=== PATIENT | female | born 1995 | race Caucasian/White ===

== ENCOUNTER 2018-07-01 09:43 | Day surgery (SDC) | payer OTHER ==
[2018-06-29 10:23] LABS: APPEARANCE,URINE CLEAR; BILIRUBIN,URINE NEGATIVE (NEGATIVE); COLOR,URINE COLORLESS; GLUCOSE, URINE NEGATIVE (NEGATIVE); KETONES,URINE NEGATIVE (NEGATIVE); LEUKOCYTE ESTERASE,URINE NEGATIVE (NEGATIVE); NITRITE,URINE NEGATIVE (NEGATIVE); PROTEIN,URINE NEGATIVE (NEGATIVE); URINE SPECIFIC GRAVITY 1.001; UROBILINOGEN,URINE NEGATIVE mg/dL (<2.0)
[2018-06-29 11:51] LABS: HEMATOCRIT 42.9 % (36.0-47.0); MEAN CORPUSCULAR HEMOGLOBIN 34.8 pg (27.0-33.4); MEAN CORPUSCULAR HGB CONC 34.8 g/dL (32.0-36.0); MEAN CORPUSCULAR VOLUME 100 fl (80-97); PLATELET COUNT 262 10^3/uL (150-450); RED CELL DISTRIBUTION WIDTH 12.7 % (11.5-14.0); WHITE BLOOD COUNT 6.8 10^3/uL (4.0-10.5)
[2018-06-29 12:07] LABS: ALANINE AMINOTRANSFERASE 62 U/L (9-52); ALKALINE PHOSPHATASE 41 U/L (38-126); ANION GAP 12 (5-19); ASPARTATE AMINO TRANSFERASE 23 U/L (14-36); BILIRUBIN,DIRECT 0.1 mg/dL (0.0-0.4); BILIRUBIN,TOTAL 0.3 mg/dL (0.2-1.3); BLOOD UREA NITROGEN 13 mg/dL (7-20); CARBON DIOXIDE 26 mmol/L (22-30); CHLORIDE 104 mmol/L (98-107); GLUCOSE 94 mg/dL (75-110); POTASSIUM 5.2 mmol/L (3.6-5.0); SODIUM 142.4 mmol/L (137-145); TOTAL PROTEIN 7.9 g/dL (6.3-8.2)
[~2018-07-01 09:43] MED LIST: BUPIVACAINE HCL 0.25 % INJ/PF (2.5 MG/1 ML) 30 ML VIAL ONE; CEFAZOLIN 1 GM/D5W RTU 1 GM/50 ML RTUPB IV PRN; LACTATED RINGERS 1000 ML IV PRN; LIDOCAINE 0.5% INJ-PF (5 MG/ML) 50 ML SDV SUBCUT PRN
[2018-07-01] MEDS ORDERED: METOCLOPRAMIDE HCL INJ/PF 10 MG/2 ML SDV ONE (10:00)
[2018-07-01] MEDS ORDERED: GLYCOPYRROLATE 1 MG/5 ML SYRINGE ONE (10:00)
[2018-07-01] MEDS ORDERED: ROCURONIUM BROMIDE INJ 50 MG/5 ML VIAL IV ONE (10:00)
[2018-07-01] MEDS ORDERED: SUCCINYLCHOLINE CHLORIDE INJ 200 MG/10 ML VIAL ONE (10:00)
[2018-07-01] MEDS ORDERED: DEXAMETHASONE SOD PHOSPHATE INJ 4 MG/1 ML VIAL ONE (10:00)
[2018-07-01] MEDS ORDERED: NEOSTIGMINE METHYLSULFATE 10 MG/10 ML VIAL ONE (10:00)
[2018-07-01] MEDS ORDERED: CEFAZOLIN 1 GM/D5W RTU 1 GM/50 ML RTUPB IV ONE (10:34)
[2018-07-01] MEDS ORDERED: ONDANSETRON HCL INJ/PF 4 MG/2 ML SDV ONE ×2 (10:55→11:25)
[2018-07-01] MEDS ORDERED: HYDROMORPHONE HCL INJ/PF 2 MG/ML AMPULE ONE ×2 (11:24→12:53)
[2018-07-01] MEDS ORDERED: ACETAMINOPHEN 1,000 MG/100 ML RTUPB IV ONE (11:25)
[2018-07-01] MEDS ORDERED: PROPOFOL INJ 200 MG/20 ML VIAL IV ONE (11:25)
[2018-07-01] MEDS ORDERED: MIDAZOLAM 2 MG/2 ML INJ ONE (11:25)
[2018-07-01] MEDS ORDERED: PROMETHAZINE HCL INJ 25 MG/1 ML VIAL IV PRN ×3 (13:01→13:59)
[2018-07-01] MEDS ORDERED: DIPHENHYDRAMINE HCL 50 MG/ML VIAL IV PRN (13:01)
[2018-07-01] MEDS ORDERED: OXYCODONE-ACETAMINOPHEN 5-325 MG TABLET PO PRN ×2 (13:01)
[2018-07-01] MEDS ORDERED: MEPERIDINE HCL/PF INJ 25 MG/1 ML DISP.SYRIN IV PRN (13:01)
[2018-07-01] MEDS ORDERED: PROMETHAZINE HCL INJ 25 MG/1 ML VIAL ONE (13:32)
[2018-07-01] MEDS ORDERED: OXYCODONE HCL IR 5 MG TABLET PO PRN ×2 (13:57→13:58)
[2018-07-01] MEDS ORDERED: OXYCODONE HCL IR 5 MG TABLET ONE (14:38)
[2018-07-01 15:56] VITALS: BP 116/71
--- NOTE | 2018-07-01 17:56 | OPERATIVE REPORT E ---
Operative Report NAME: BREANA CALLAHAN : 1995 AGE: 22Y DATE OF SURGERY: 07/01/2018 ROOM: PREOPERATIVE DIAGNOSIS: PELVIC PAIN. POSTOPERATIVE DIAGNOSIS: PELVIC PAIN WITH MINIMAL SCAR TISSUE WHERE SHE HAD HER PREVIOUS APPENDECTOMY, MINIMAL SCAR TISSUE WHERE SHE HAD HER PREVIOUS CHOLECYSTECTOMY. THE LIVER DID SHOW EVIDENCE OF SOME SUPERFICIAL SCAR TISSUE. THE UTERUS APPEARED TO BE NORMAL. THE TUBES AND OVARIES APPEARED TO BE NORMAL. CUL-DE-SAC APPEARED TO BE NORMAL. SURGEON: ANTHONY GAINES M.D. PROCEDURE: The patient was brought into the OR, placed on the table in a supine position, and inducted under general anesthesia. She was repositioned in a dorsal lithotomy position, prepped and draped in a sterile fashion. Bladder was drained of about 50 mL of clear yellow urine. A pelvic under anesthesia was done. The bivalve speculum was inserted. The cervix was grasped and on its anterior lip, a single-toothed tenaculum. Sounded to 7 cm, dilated and curetted with a small sharp curette. A tenaculum probe was inserted. The other tenaculum was removed. The bivalve speculum was removed. Attention was then turned towards the abdominal wall. Veress needle was introduced umbilically and carried through the various layers until abdominal cavity was entered. Upon entering the abdominal cavity, a drop of saline was placed on the Veress needle. The abdomen was picked up and the saline easily egressed into the peritoneal cavity. The patient was then connected to the CO2. Opening pressures were 4 cm/H20. She had 3 liters of CO2 injected to a pressure of 15 cm/H20. The Veress needle was removed. A small incision was made infraumbilically. Through this incision, a trocar and sleeve were inserted. The trocar was removed, and through the sleeve, the laparoscope was inserted. A second incision was made suprapubically. Through this incision, the trocar and sleeve were inserted. The trocar was removed, and through the sleeve, the probe was inserted. The contents of the pelvis and abdomen were then visualized and video recorded, with the aforementioned cecal adhesions over to the right lateral wall, secondary to having her appendix out, and some scarring on the surface of the liver, secondary to having her gallbladder out. Otherwise, the uterus appeared to be normal. The tubes and ovaries appeared to be normal. The cul-de-sac appeared to be normal. This terminated the procedure. The probe was removed. The suprapubic sleeve was removed. There was no evidence of active bleeding. The scope was removed through the sleeve. The CO2 was allowed to escape, and then the subumbilical sleeve was removed. Patient had 4 mL of 0.25% Marcaine injected in the subumbilical incision and 3 mL of 0.25% Marcaine injected into the suprapubic incision. The fascia was then closed in both of these incisions using 0 Vicryl. The skin edges in the subumbilical incision were closed with a subcuticular using 4-0 Prolene. The suprapubic incision was closed using interrupted 4-0 Prolene. Patient tolerated procedure well. Negligible blood loss. We then went back down and removed the tenaculum and probe, and inspected the cervix. There was no evidence of active bleeding. This terminated the procedure. The anesthesia was discontinued. Patient was transferred back to the recovery room in satisfactory condition. DICTATING PHYSICIAN: ANTHONY GAINES M.D. [id number] PHY#: [id number] ID: [id number] JOB#: [id number] ACCT: [id number] cc:ANTHONY GAINES M.D. >
== END 2018-07-01 15:45 | disposition home or self-care (01) ==
LOC: OROUT 09:43
PROVIDERS: ATTEND Obstetrics & Gynecology
DX: R10.2 Pelvic and perineal pain (principal)
CPT/HCPCS: 58120; 36415 ×2; 84132; 85027; 81025; 80053; 81001; 88305 ×2; J2250; J0690; J3490 ×2; J1100; J2765; J1170; J2550; J0330; J2405; J2704; J0131; 790

== ENCOUNTER 2019-05-10 18:29 | Emergency (ER) | payer OTHER ==
[2019-05-10] MEDS ORDERED: NORMAL SALINE 1000 ML 1,000 ML IV ONE (20:43)
[2019-05-10] MEDS ORDERED: PROCHLORPERAZINE EDISYLATE INJ 10 MG/2 ML VIAL IV ONE (20:45)
[2019-05-10] MEDS ORDERED: LIDOCAINE 5% (700 MG) TRANSDERMAL ADH..PATCH TP ONE (20:45)
[2019-05-10] MEDS ORDERED: DIPHENHYDRAMINE HCL 50 MG/ML VIAL IV ONE (20:45)
--- NOTE | 2019-05-10 20:47 | ER Document Report ---
ED Medical Screen (RME) - General Chief Complaint: Headache <24 hrs old Stated Complaint: HEADACHE, RIGHT HIP PAIN, NAUSEA Time Seen by Provider: 05/10/19 20:36 Primary Care Provider: RIKKI BUI MD [Primary Care Provider] - Follow up as needed Notes: Patient is 23-year-old female who presents emergency department with a chief complaint of a migraine headache. Her symptoms started this morning. She states that she has taken ibuprofen and Tylenol to help with her headache, but has had little relief. Patient has a history of anxiety and does not take any medication at this time. Apparently the patient has Compazine at home, but has not taken any of it to help with her symptoms. Patient states that she has also had left hip pain for a while, but has not seen a primary care provider for this issue. Exam: Anxious, tearful. I have greeted and performed a rapid initial assessment of this patient. A comprehensive ED assessment and evaluation of the patient, analysis of test results and completion of medical decision making process will be conducted by an additional ED providers. TRAVEL OUTSIDE OF THE [place] IN LAST 30 DAYS: No - Related Data Allergies/Adverse Reactions: fentanyl Allergy (Severe, Verified 05/10/19 20:31) grand mal seizure ketorolac [From Toradol] Allergy (Severe, Verified 05/10/19 20:31) Vomiting morphine Allergy (Severe, Verified 05/10/19 20:31) projectile vomiting shellfish derived Allergy (Severe, Verified 05/10/19 20:31) Anaphylaxis Past Medical History - Social History Chew tobacco use (# tins/day): No Drug Abuse: None - Past Medical History Cardiac Medical History: Denies: Hx Coronary Artery Disease, Hx Heart Attack, Hx Hypertension Pulmonary Medical History: Denies: Hx Asthma, Hx Bronchitis, Hx COPD, Hx Pneumonia Neurological Medical History: Denies: Hx Cerebrovascular Accident, Hx Seizures Musculoskeltal Medical History: Denies Hx Arthritis - Immunizations Hx Diphtheria, Pertussis, Tetanus Vaccination: Yes Physical Exam - Vital signs Vitals: Temp Pulse Resp BP Pulse Ox 98.4 F 91 17 127/94 H 100 05/10/19 18:34 05/10/19 18:34 05/10/19 18:34 05/10/19 18:34 05/10/19 18:34 Course - Vital Signs Vital signs: Temp Pulse Resp BP Pulse Ox 98.4 F 91 17 127/94 H 100 05/10/19 18:34 05/10/19 18:34 05/10/19 18:34 05/10/19 18:34 05/10/19 18:34 Doctor's Discharge - Discharge Referrals: RIKKI BUI MD [Primary Care Provider] - Follow up as needed
[2019-05-10 21:15] LABS: ABSOLUTE BASOPHILS # (AUTO) 0.1 10^3/uL (0.0-0.2); ABSOLUTE EOSINOPHILS # (AUTO) 0.6 10^3/uL (0.0-0.6); ABSOLUTE LYMPHOCYTES (AUTO) 3.3 10^3/uL (0.5-4.7); ABSOLUTE MONOCYTES (AUTO) 0.7 10^3/uL (0.1-1.4); ABSOLUTE NEUT (AUTO) 4.5 10^3/uL (1.7-8.2); BASOPHILS % (AUTO) 0.8 % (0-2); EOSINOPHILS % (AUTO) 6.9 % (0-6); HEMATOCRIT 44.9 % (36.0-47.0); LYMPHOCYTES % (AUTO) 35.8 % (13-45); MEAN CORPUSCULAR HEMOGLOBIN 33.2 pg (27.0-33.4); MEAN CORPUSCULAR HGB CONC 33.6 g/dL (32.0-36.0); MEAN CORPUSCULAR VOLUME 99 fl (80-97); MONOCYTES % (AUTO) 7.5 % (3-13); PLATELET COUNT 278 10^3/uL (150-450); RED BLOOD COUNT 4.53 10^6/uL (3.72-5.28); RED CELL DISTRIBUTION WIDTH 12.4 % (11.5-14.0); TOTAL CELLS COUNTED % (AUTO) 100 %; WHITE BLOOD COUNT 9.1 10^3/uL (4.0-10.5)
[2019-05-10 21:32] LABS: ALBUMIN 4.7 g/dL (3.5-5.0); ALKALINE PHOSPHATASE 43 U/L (38-126); ANION GAP 10 (5-19); ASPARTATE AMINO TRANSFERASE 20 U/L (14-36); BILIRUBIN,DIRECT 0.1 mg/dL (0.0-0.4); BILIRUBIN,TOTAL 0.4 mg/dL (0.2-1.3); BLOOD UREA NITROGEN 10 mg/dL (7-20); CALCIUM 9.8 mg/dL (8.4-10.2); CARBON DIOXIDE 25 mmol/L (22-30); CHLORIDE 104 mmol/L (98-107); GLUCOSE 84 mg/dL (75-110); POTASSIUM 4.4 mmol/L (3.6-5.0); TOTAL PROTEIN 7.8 g/dL (6.3-8.2)
[2019-05-10 22:49] LABS: FREE T3 3.79 pg/mL (2.77-5.27); FREE T4 (FREE THYROXINE) 1.41 ng/dL (0.78-2.19)
[2019-05-10 23:03] LABS: THYROID STIMULATING HORMONE 1.7 uIU/mL (0.47-4.68)
--- NOTE | 2019-05-10 23:36 | ER Document Report ---
ED Headache - General Chief Complaint: Headache <24 hrs old Stated Complaint: HEADACHE, RIGHT HIP PAIN, NAUSEA Time Seen by Provider: 05/10/19 20:36 Primary Care Provider: RIKKI BUI MD [Primary Care Provider] - Follow up tomorrow Mode of Arrival: Ambulatory Information source: Patient Notes: 23-year-old female presented to ED for complaint of a headache. She states his symptoms started in the morning. She states she is taken ibuprofen 600 mg of noon and at 4 PM she is also taken Tylenol 500 mg at 6 AM and noon. She states she took propranolol 10 mg at 3 PM and this is helped her headache. She states she has Compazine and Benadryl at home but did not take them because she did not think it would help the headache. She states she is also been sick all over with a headache complete body ache and she was refusing to take the medications that were ordered in the pit area I did talk with patient and explained to her that the medications that were ordered in the pit area were good for a migraine headache. Patient agreed to take the Compazine and Benadryl as well as the Lidoderm patch. TRAVEL OUTSIDE OF THE [place] IN LAST 30 DAYS: No - HPI Patient complains to provider of: Headache Onset: This morning Onset was: Gradual Timing: Still present Quality of pain: Throbbing Severity: Severe Pain Level: 5 Associated symptoms: Nausea/vomiting, Other - Anxiety, complete body aches Exacerbated by: Light, Noise, Movement Similar symptoms previously: Yes Recently seen / treated by doctor: No - Related Data Allergies/Adverse Reactions: fentanyl Allergy (Severe, Verified 05/10/19 20:31) grand mal seizure ketorolac [From Toradol] Allergy (Severe, Verified 05/10/19 20:31) Vomiting morphine Allergy (Severe, Verified 05/10/19 20:31) projectile vomiting shellfish derived Allergy (Severe, Verified 05/10/19 20:31) Anaphylaxis Past Medical History - General Information source: Patient - Social History Smoking Status: Never Smoker Chew tobacco use (# tins/day): No Drug Abuse: None Family History: Reviewed & Not Pertinent Patient has suicidal ideation: No Patient has homicidal ideation: No - Past Medical History Cardiac Medical History: Reports: None Pulmonary Medical History: Reports: None EENT Medical History: Reports: None Neurological Medical History: Reports: None Endocrine Medical History: Reports: None Renal/ Medical History: Reports: Hx Ovarian Cysts - PCOS, Other - Endometriosis Malignancy Medical History: Reports: None GI Medical History: Reports: None Musculoskeletal Medical History: Reports Hx Musculoskeletal Trauma - Fractured right elbow and toes on both feet Psychiatric Medical History: Reports: Hx Anxiety, Hx Attention Deficit Hyperactivity Disorder Traumatic Medical History: Reports: Hx Fractures - Right elbow and toes on both feet Infectious Medical History: Reports: None Past Surgical History: Reports: Hx Orthopedic Surgery - Right shoulder - Immunizations Hx Diphtheria, Pertussis, Tetanus Vaccination: Yes Hx Pneumococcal Vaccination: 08/03/15 Review of Systems - Review of Systems Constitutional: Recent illness EENT: Nose discharge, Sinus discharge Cardiovascular: No symptoms reported Respiratory: No symptoms reported Gastrointestinal: Nausea Genitourinary: No symptoms reported Female Genitourinary: No symptoms reported Musculoskeletal: Back pain Skin: No symptoms reported Hematologic/Lymphatic: No symptoms reported Neurological/Psychological: Headaches -: Yes All other systems reviewed and negative Physical Exam - Vital signs Vitals: Temp Pulse Resp BP Pulse Ox 98.4 F 91 17 127/94 H 100 05/10/19 18:34 05/10/19 18:34 05/10/19 18:34 05/10/19 18:34 05/10/19 18:34 Interpretation: Normal - General General appearance: Appears well, Alert - HEENT Head: Normocephalic, Atraumatic Eyes: Normal Pupils: PERRL Ears: Normal External canal: Normal Tympanic membrane: Normal Sinus: Normal Nasal: Purulent discharge, Swelling Mouth/Lips: Normal Pharynx: Normal, Post nasal drainage Neck: Normal - Respiratory Respiratory status: No respiratory distress Chest status: Nontender Breath sounds: Normal Chest palpation: Normal - Cardiovascular Rhythm: Regular Heart sounds: Normal auscultation Murmur: No - Abdominal Inspection: Normal Distension: No distension Bowel sounds: Normal Tenderness: Nontender Organomegaly: No organomegaly - Back Back: Normal, Tender - Low back with sciatica down left. No: Vertebra tenderness Notes: No signs or symptoms of cauda equina, no loss of control of bowel bladder, no saddle anesthesia, no loss of sensation or control of lower extremities - Extremities General upper extremity: Normal inspection, Nontender, Normal color, Normal ROM, Normal temperature General lower extremity: Normal inspection, Nontender, Normal color, Normal ROM, Normal temperature, Normal weight bearing. No: Markel's sign - Neurological Neuro grossly intact: Yes Cognition: Normal Orientation: AAOx4 Organ Coma Scale Eye Opening: Spontaneous Organ Coma Scale Verbal: Oriented Organ Coma Scale Motor: Obeys Commands Organ Coma Scale Total: 15 Speech: Normal Motor strength normal: LUE, RUE, LLE, RLE Sensory: Normal - Psychological Associated symptoms: Normal affect, Normal mood - Skin Skin Temperature: Warm Skin Moisture: Dry Skin Color: Normal Course - Re-evaluation Re-evalutation: 05/11/19 03:00 Patient assessment consistent with an upper respiratory infection, migraine, and low back pain with sciatica going down the left side. She was treated with Compazine and Benadryl IV fluids and Lidoderm patch. Patient states she had very minimal pain by the time of discharge. Patient was given discharge instructions and verbalized understanding and agreement with this treatment plan. - Vital Signs Vital signs: Temp Pulse Resp BP Pulse Ox 98.4 F 85 17 106/69 100 05/10/19 23:45 05/10/19 23:45 05/10/19 23:45 05/10/19 23:45 05/10/19 23:45 - Laboratory Result Diagrams: 05/10/19 20:58 05/10/19 20:58 Laboratory results interpreted by me: 05/10/19 20:58 MCV 99 H Eos % (Auto) 6.9 H Discharge - Discharge Clinical Impression: Headache Qualifiers: Headache type: unspecified Headache chronicity pattern: unspecified pattern Intractability: not intractable Qualified Code(s): R51 - Headache Low back pain Qualifiers: Chronicity: chronic Back pain laterality: left Sciatica presence: with sciatica Sciatica laterality: sciatica of left side Qualified Code(s): M54.42 - Lumbago with sciatica, left side; G89.29 - Other chronic pain Condition: Stable Disposition: HOME, SELF-CARE Additional Instructions: HEADACHE: The physician does not feel that the headache you are experiencing has a serious underlying cause. Most headaches are due to emotional stress, with resultant muscle tension (tension headache). Occasionally, headaches are secondary to changes in the blood vessels of the scalp (vascular headache and migraine headache). Sometimes, a headache is the first symptom of another developing illness, such as a viral infection. You have no evidence of stroke, bleeding, meningitis, or other serious cause of your headache. The treatment of headaches varies with the severity and cause of the pain. Not all headaches need pain shots. In fact, there is evidence that using narcotics for headaches may make them worse in the long run. The physician will determine the therapy that's in your best interest. If you develop a fever, if the headache is different from any you've previously experienced, or if the headache progressively worsens, then call your physician at once or go to the emergency room. LOW BACK PAIN: Three out of every four people will have an episode of disabling back pain during their lifetime. Most commonly the pain is due to straining of the muscles and ligaments in the low back. Usual treatment includes: (1) Rest on a firm surface. Avoid lying on your stomach. (2) Ice pack the painful area. After a few days, gentle heat may be used intermittently to relax the area, or ice packs can be continued. (3) Medication may be needed -- muscle relaxers and antiinflammatory medicines are commonly used. (4) As the back improves, exercises are prescribed to strengthen the back and abdominal muscles. Your doctor will advise you on the proper care for your back at each stage in your recovery. You may be better in a few days -- or healing may take several weeks. If new symptoms of a "herniated disc" (radiation of pain, numbness, or tingling down the back of the leg or weakness in the leg) occur, you should be re-examined. Further testing may be necessary. ICE PACKS: Apply ice packs frequently against the painful area. Many different sche dules are recommended, such as "20 minutes on, 20 minutes off" or "one hour ice, two hours rest." If you need to work, you may need to go longer between ice treatments. You should plan to have the area ice packed AT LEAST one fourth of the time. The ice should be applied over the wrap, tape, or splint, or over a layer of cloth -- not directly against the skin. Some ice bags have a built-in cloth and can be put directly on the skin. WARM PACKS: After approximately two days, apply gentle heat (such as a heating pad or hot water bottle) for about 20 to 30 minutes about every two hours -- at least four times daily. Warmth and elevation will help you make a more rapid recovery, and will ease the pain considerably. Do not use HOT heat, and never apply heat for longer than 30 minutes. The continuous heat can invisibly damage skin and muscles -- even when no burn is seen on the surface. Damaged muscles can make you MORE sore. USE OF DIPHENHYDRAMINE: Diphenhydramine (Benadryl) is an antihistamine and has been recommended to help treat your headache and to prevent side effects of other medications used to treat headaches. The medication can be repeated four times daily. Age Elixir (12.5 mg/tsp) 25 mg pill adult 1-2 tabs Antihistamines may cause drowsiness, especially with the first dose. Do not operate machinery or drive while under the effects of the medication. Do not combine the medication with alcohol, or with any other medication without talking to your doctor. INTRAVENOUS COMPAZINE FOR HEADACHE: You have received therapy for headaches, using intravenous Compazine. This treatment is dramatically successful in relieving the headache in about 50 percent of cases. When it works, it provides a rapid method of eliminating the headache without resorting to narcotics (and the problems associated with them). Most patients still feel fully alert after the Compazine, but others may be slightly drowsy. It's best not to drive or work with machinery for six to eight hours. Do not take alcohol or other medication unless you discuss it with the doctor. If you develop tightness and spasms in your muscles, especially the neck and tongue, you should return. This is a side effect which can be treated. Intravenous (IV) Fluids As part of your care today, you received intravenous (IV) fluids. IV fluids are administered to patients who are dehydrated or to those who have certain chemical (electrolyte) abnormalities that need correcting. Stretching Exercises for the Back The physician has recommended that you begin stretching exercises for your back. These are often used even while the back is painful. However, you should notify the physician if the activities seem to increase your pain. PELVIC TILT: Lie flat on your back with knees bent. Tighten your stomach and buttock muscles so it flattens your lower back against the floor. Hold 10 seconds. Repeat 10 times, twice daily. KNEE RAISE: Lying on the back with knees bent, raise one knee to your chest, then the other. Hold both knees against the chest 10 seconds, then lower one knee at a time. Repeat 10 times, twice daily. PARTIAL TRUNK RAISE: Lie face down, arms at your sides. Keeping your waist on the floor, use your arms raise your chest up. Support yourself on your elbows for 30 seconds. Repeat twice daily, increasing the time to two minutes a s you recover. FOLLOW-UP CARE: If you have been referred to a physician for follow-up care, call the physicians office for an appointment as you were instructed or within the next two days. If you experience worsening or a significant change in your symptoms, notify the physician immediately or return to the Emergency Department at any time for re-evaluation. Forms: Elevated Blood Pressure, Return to Work Referrals: RIKKI BUI MD [Primary Care Provider] - Follow up tomorrow
[2019-05-10 23:46] VITALS: BP 106/69
== END 2019-05-10 23:52 | disposition home or self-care (01) ==
LOC: ER 18:29
DX: R51 Headache (principal); M54.42 Lumbago with sciatica, left side; G89.29 Other chronic pain; R11.2 Nausea with vomiting, unspecified; R09.82 Postnasal drip; F41.9 Anxiety disorder, unspecified; Z88.5 Allergy status to narcotic agent; Z88.8 Allergy status to other drugs, medicaments and biological substances; Z87.892 Personal history of anaphylaxis; Z91.013 Allergy to seafood
CPT/HCPCS: 36415; 84439; 84443; 85025; 80053; 84481; J1200; J0780; J7030; 96374; 96375; 99284